=== PATIENT | male | born 1980 | race Caucasian/White ===

== ENCOUNTER 2017-09-24 18:20 | Emergency (ER) | payer SELFPAY ==
[2017-09-24 18:24] VITALS: BP 168/103; PULSE 85; RESP 14; TEMP 36.6; O2SAT 99; BMI 36.5
--- NOTE | 2017-09-24 19:22 | ED.NAVMDI ---
HPI - Nausea/Vomiting/Diarrhea <ADINA Dash - Last Filed: 09/25/17 00:31> General Chief complaint: Nausea/Vomiting/Diarrhea Stated complaint: N/V/D Time Seen by Provider: 09/24/17 19:21 Source: patient Mode of arrival: ambulatory Limitations: no limitations History of Present Illness HPI Narrative: Patient presents with nausea vomiting and diarrhea today. He states he woke up with it this morning. Had tuna fish for dinner last night and started feeling sick today. He wonders if the tuna fish is the cause. He denies any fevers but complains of some chills. He states he has had his gallbladder removed. He has had 6 episodes of diarrhea today. He does not know any blood in the stool but states his stool was black after he took Pepto-Bismol. His last vomit was approximately 1 hr before arrival to the emergency department. He denies any chest pain or shortness of breath. Related Data Home Medications Medication Instructions Recorded Confirmed No Known Home Medications 09/24/17 09/24/17 Allergies Allergy/AdvReac Type Severity Reaction Status Date / Time No Known Drug Allergies Allergy Verified 09/24/17 18:27 Review of Systems <ADINA Dash - Last Filed: 09/25/17 00:31> Review of Systems GENERAL: See HPI HEENT: Denies sinus pain, ear pain, sore throat, difficulty swallowing, dizziness. RESPIRATORY: Denies dyspnea, cough, wheezing, hemoptysis, sputum. CARDIOVASCULAR: Denies chest pain, palpitations, orthopnea, edema, GASTROINTESTINAL: See HPI : Denies dysuria, frequency, incontinence, hematuria, urinary retention. MUSCULOSKELETAL: denies weakness, joint pain, or bony pain SKIN: Denies rash, skin lesions, or other NEUROLOGIC: Denies weakness, headache, numbness, change in speech, confusion, seizures, incoordination. PSYCHIATRIC: No concerning psychosocial issues. 12 point review of systems is negative except for those stated above Exam <ADINA Dash - Last Filed: 09/25/17 00:31> Narrative Exam Narrative: GENERAL: This is a well-nourished, well-developed patient, lying on stretcher. HEAD: Atraumatic. Normocephalic. No temporal or scalp tenderness. EYES: Pupils equal round and reactive. Extraocular motions intact. No scleral icterus. No injection or drainage. ENT: Nose without bleeding, purulent drainage or septal hematoma. Throat without erythema, tonsillar hypertrophy or exudate. Uvula midline. Airway patent. NECK: Trachea midline. No JVD or lymphadenopathy. Supple, nontender, no meningeal signs. CARDIOVASCULAR: Regular rate and rhythm without murmurs, gallops, or rubs. RESPIRATORY: Clear to auscultation. Breath sounds equal bilaterally. No wheezes, rales, or rhonchi. GASTROINTESTINAL: Abdomen soft, generalized tenderness to palpation. No guarding noted. Active bowel sounds all 4 quadrants. No palpable hepatosplenomegaly. No pain at McBurney's point. EXTREMITIES: No clubbing, cyanosis, or edema. No joint tenderness, effusion, or edema noted. BACK: Nontender without deformity or crepitance. No flank tenderness. NEURO: AOx3. SKIN: No rash or erythema. Initial Vital Signs Initial Vital Signs: Vital Signs Temperature 97.9 F 09/24/17 18:24 Pulse Rate 85 09/24/17 18:24 Respiratory Rate 14 09/24/17 18:24 Blood Pressure 168/103 H 09/24/17 18:24 Pulse Oximetry 99 09/24/17 18:24 <Bina Titus DO - Last Filed: 09/25/17 05:05> Initial Vital Signs Initial Vital Signs: Vital Signs Temperature 97.9 F 09/24/17 18:24 Pulse Rate 85 09/24/17 18:24 Respiratory Rate 14 09/24/17 18:24 Blood Pressure 168/103 H 09/24/17 18:24 Pulse Oximetry 99 09/24/17 18:24 Course <JUN Dash-BC - Last Filed: 09/25/17 00:31> Additional Information: The patient presented with nausea vomiting diarrhea. He was given normal saline by IV and basic labs were drawn. He was given Zofran for nausea. An EKG was obtained. I checked on him several times throughout his stay. He was given Protonix as well as a GI cocktail, which she states provided some relief. The patient did not want to obtain a CT scan at this point in time as he felt his illness was due to eating tuna fish. He also did not have an acute abdomen, stable vital signs and no elevated white count. I discussed with him at length return precautions to come back to the emergency department for worsening pain, fever or any other acute concerns. I gave him a take-home pack of Zofran for nausea. He did pass a p.o. trial. Orders Ordered: ED Orders 09/24/17 20:11 EKG-12 Lead Stat Discontinued Medications Al Hydrox/Mg Hydrox/Simethicone 20 ml/ Lidocaine HCl 15 ml 0 ml PO NOW ONE Stop: 09/24/17 20:55 Last Admin: 09/24/17 21:00 Dose: 35 ml Sodium Chloride (Normal Saline 0.9%) 1,000 mls @ 1,000 mls/hr IV BOLUS ONE Stop: 09/24/17 20:29 Last Infusion: 09/24/17 20:42 Dose: 0 mls/hr Admin: 09/24/17 19:54 Dose: 1,000 mls/hr Sodium Chloride (Normal Saline 0.9%) 500 mls @ 1,000 mls/hr IV BOLUS ONE Stop: 09/24/17 20:40 Last Infusion: 09/24/17 21:20 Dose: 0 mls/hr Admin: 09/24/17 20:34 Dose: 1,000 mls/hr Ondansetron HCl (Zofran) 4 mg IV NOW ONE Stop: 09/24/17 19:31 Last Admin: 09/24/17 19:54 Dose: 4 mg Ondansetron HCl (Zofran) 4 mg IV NOW ONE Stop: 09/24/17 20:12 Last Admin: 09/24/17 20:34 Dose: Ondansetron HCl (Zofran Odt Prepack) 1 bottle MISC SEEINSTR ONE Stop: 09/24/17 22:29 Last Admin: 09/24/17 22:38 Dose: 1 bottle Pantoprazole Sodium (Protonix) 40 mg IV NOW ONE Stop: 09/24/17 20:34 Last Admin: 09/24/17 20:34 Dose: 40 mg Vital Signs - 8 hr 09/24/17 22:43 Temperature 98.4 F Pulse Rate 73 Respiratory Rate 16 Blood Pressure 160/91 H Pulse Oximetry 100 <Bina Titus DO - Last Filed: 09/25/17 05:05> Orders Ordered: ED Orders 09/24/17 20:11 EKG-12 Lead Stat Discontinued Medications Al Hydrox/Mg Hydrox/Simethicone 20 ml/ Lidocaine HCl 15 ml 0 ml PO NOW ONE Stop: 09/24/17 20:55 Last Admin: 09/24/17 21:00 Dose: 35 ml Sodium Chloride (Normal Saline 0.9%) 1,000 mls @ 1,000 mls/hr IV BOLUS ONE Stop: 09/24/17 20:29 Last Infusion: 09/24/17 20:42 Dose: 0 mls/hr Admin: 09/24/17 19:54 Dose: 1,000 mls/hr Sodium Chloride (Normal Saline 0.9%) 500 mls @ 1,000 mls/hr IV BOLUS ONE Stop: 09/24/17 20:40 Last Infusion: 09/24/17 21:20 Dose: 0 mls/hr Admin: 09/24/17 20:34 Dose: 1,000 mls/hr Ondansetron HCl (Zofran) 4 mg IV NOW ONE Stop: 09/24/17 19:31 Last Admin: 09/24/17 19:54 Dose: 4 mg Ondansetron HCl (Zofran) 4 mg IV NOW ONE Stop: 09/24/17 20:12 Last Admin: 09/24/17 20:34 Dose: Ondansetron HCl (Zofran Odt Prepack) 1 bottle MISC SEEINSTR ONE Stop: 09/24/17 22:29 Last Admin: 09/24/17 22:38 Dose: 1 bottle Pantoprazole Sodium (Protonix) 40 mg IV NOW ONE Stop: 09/24/17 20:34 Last Admin: 09/24/17 20:34 Dose: 40 mg Vital Signs - 8 hr 09/24/17 22:43 Temperature 98.4 F Pulse Rate 73 Respiratory Rate 16 Blood Pressure 160/91 H Pulse Oximetry 100 MDM - Nausea/Vomiting/Diarrhea <ADINA Dash - Last Filed: 09/25/17 00:31> Differential Diagnosis Likely traveler's diarrhea, food poisoning and gastroenteritis Lab Data Result diagrams: 09/24/17 19:26 09/24/17 19:26 Lab Results 09/24/17 09/24/17 09/24/17 Range/Units 19:26 19:26 19:55 WBC 8.8 (4.5-11.0) X10^3/uL RBC 4.71 (4.5-5.9) X10^6/uL Hgb 14.2 (13.5-17.5) g/dL Hct 42.5 (41-53) % MCV 90.2 (80-100) fL MCH 30.2 (26-34) PG MCHC 33.5 (30-36) % RDW 13.6 (11.6-14.8) % Plt Count 296 (150-400) X10^3/uL Neut % (Auto) 51.8 (50-75) % Lymph % (Auto) 38.3 (25-40) % Gaines % (Auto) 6.9 (3-14) % Eos % (Auto) 2.1 (2-4) % Baso % (Auto) 0.9 (0-2) % Neut # (Auto) 4500 (7692-3630) /uL Sodium 144 (137-145) mmol/L Potassium 3.6 (3.4-5.1) mmol/L Chloride 105 (98-107) mmol/L Carbon Dioxide 29 (22-32) mmol/L BUN 10 (9-20) mg/dL Creatinine 0.90 (0.66-1.25) mg/dL Estimated GFR > 60.0 (>60) mL/min BUN/Creatinine Ratio 11.1 (6-22) Glucose 98 (70-100) mg/dL Calcium 9.5 (8.4-10.2) mg/dL Total Bilirubin 0.7 (0.2-1.3) mg/dL AST 27 (17-59) IU/L ALT 28 (21-72) IU/L Alkaline Phosphatase 60 (38-126) U/L Total Protein 7.0 (6.3-8.2) g/dL Albumin 4.1 (3.5-5.0) g/dL Globulin 2.9 (1.7-4.1) g/dL Albumin/Globulin Ratio 1.4 (1.0-2.8) Lipase 77 (23-300) U/L Urine Color Yellow Urine Appearance Clear Urine pH 5.5 (4.5-8.0) Ur Specific [place] 1.025 (1.000-1.035) Urine Protein Negative (Negative) Urine Glucose (UA) Negative (Normal) g/dL Urine Ketones Trace H (NEGATIVE) Urine Occult Blood Trace-lysed (Negative) Urine Nitrate Negative (Negative) Urine Bilirubin Negative (NEGATIVE) Urine Urobilinogen 0.2 (0.2) E.U./dL Ur Leukocyte Esterase Negative (NEGATIVE) Urine RBC 1-5/hpf (0-5/HPF) Urine WBC None seen (0-5/HPF) Urine Bacteria None seen (None) MDM Narrative Medical decision making narrative: The patient presented with onset of nausea vomiting diarrhea after eating tuna fish. He did not have any guarding on abdominal exam. He has already had his gallbladder out. He remained hemodynamically stable throughout his stay. He did not have any fever. I discussed at length symptomatic care for his illness and gave him a take-home pack of Zofran. He did declined a CT at this point, I am okay with this as he does not have acute abdomen or fever. A urinalysis came back normal. He is stools guaiac negative. I discussed at length return precautions to the emergency department for any fever or worsening pain. The patient was able to pass a p.o. trial prior to leaving. <Bina Titus, DO - Last Filed: 09/25/17 05:05> Lab Data Lab Results 09/24/17 09/24/17 09/24/17 Range/Units 19:26 19:26 19:55 WBC 8.8 (4.5-11.0) X10^3/uL RBC 4.71 (4.5-5.9) X10^6/uL Hgb 14.2 (13.5-17.5) g/dL Hct 42.5 (41-53) % MCV 90.2 (80-100) fL MCH 30.2 (26-34) PG MCHC 33.5 (30-36) % RDW 13.6 (11.6-14.8) % Plt Count 296 (150-400) X10^3/uL Neut % (Auto) 51.8 (50-75) % Lymph % (Auto) 38.3 (25-40) % Gaines % (Auto) 6.9 (3-14) % Eos % (Auto) 2.1 (2-4) % Baso % (Auto) 0.9 (0-2) % Neut # (Auto) 4500 (5769-9138) /uL Sodium 144 (137-145) mmol/L Potassium 3.6 (3.4-5.1) mmol/L Chloride 105 (98-107) mmol/L Carbon Dioxide 29 (22-32) mmol/L BUN 10 (9-20) mg/dL Creatinine 0.90 (0.66-1.25) mg/dL Estimated GFR > 60.0 (>60) mL/min BUN/Creatinine Ratio 11.1 (6-22) Glucose 98 (70-100) mg/dL Calcium 9.5 (8.4-10.2) mg/dL Total Bilirubin 0.7 (0.2-1.3) mg/dL AST 27 (17-59) IU/L ALT 28 (21-72) IU/L Alkaline Phosphatase 60 (38-126) U/L Total Protein 7.0 (6.3-8.2) g/dL Albumin 4.1 (3.5-5.0) g/dL Globulin 2.9 (1.7-4.1) g/dL Albumin/Globulin Ratio 1.4 (1.0-2.8) Lipase 77 (23-300) U/L Urine Color Yellow Urine Appearance Clear Urine pH 5.5 (4.5-8.0) Ur Specific [place] 1.025 (1.000-1.035) Urine Protein Negative (Negative) Urine Glucose (UA) Negative (Normal) g/dL Urine Ketones Trace H (NEGATIVE) Urine Occult Blood Trace-lysed (Negative) Urine Nitrate Negative (Negative) Urine Bilirubin Negative (NEGATIVE) Urine Urobilinogen 0.2 (0.2) E.U./dL Ur Leukocyte Esterase Negative (NEGATIVE) Urine RBC 1-5/hpf (0-5/HPF) Urine WBC None seen (0-5/HPF) Urine Bacteria None seen (None) Discharge Plan Departure Patient Disposition: Home, Self-Care Clinical Impression: Nausea & vomiting, Diarrhea Discharge Date/Time: 09/24/17 22:44 Interventions: ED Discharge Assessment Last Done: 09/24/17 22:43 Instructions: DI for Diarrhea and Traveler's Diarrhea -- Adult, DI for Nausea -- Adult, DI for Vomiting -- Adult Activity Restrictions/Additional Instructions: Today we checked your blood work and you do not have any signs of infection. You do not have any signs of urinary tract infection. I suggest rest, pushing fluids, any easy to digest foods. I have given you a take home pack of Zofran for nausea. I suggest decreasing caffeine, alcohol, deep fried foods and other irritating agents. Come back to the emergency department if he develops any sudden changes and developed fever or localized abdominal pain. Given the sudden onset of nausea, vomiting and diarrhea after eating to not, I suspect her reacting to the food. Using take [id number] medications such as Imodium or pepto of a help you. I also suggest [id number] omeprazole if you are concerned about an ulcer. Prescriptions: No Action No Known Home Medications RF: 0 Stand Alone Forms: Work/School Restrictions <Bina Titus DO - Last Filed: 09/25/17 05:05> Cosign ED Attending Irasemaature Attestation: I was immediately available in the department for consultation. Documentation has been reviewed. I agree with assessment and plan.
--- NOTE | 2017-09-24 19:38 | ED_ITS ---
HPI - Nausea/Vomiting/Diarrhea <ADINA Dash - Last Filed: 09/25/17 00:31> General Chief complaint: Nausea/Vomiting/Diarrhea Stated complaint: N/V/D Time Seen by Provider: 09/24/17 19:21 Source: patient Mode of arrival: ambulatory Limitations: no limitations History of Present Illness HPI Narrative: Patient presents with nausea vomiting and diarrhea today. He states he woke up with it this morning. Had tuna fish for dinner last night and started feeling sick today. He wonders if the tuna fish is the cause. He denies any fevers but complains of some chills. He states he has had his gallbladder removed. He has had 6 episodes of diarrhea today. He does not know any blood in the stool but states his stool was black after he took Pepto- Bismol. His last vomit was approximately 1 hr before arrival to the emergency department. He denies any chest pain or shortness of breath. Related Data Home Medications Medication Instructions Recorded Confirmed No Known Home Medications 09/24/17 09/24/17 Allergies Allergy/AdvReac Type Severity Reaction Status Date / Time No Known Drug Allergies Allergy Verified 09/24/17 18:27 Review of Systems <ADINA Dash - Last Filed: 09/25/17 00:31> Review of Systems GENERAL: See HPI HEENT: Denies sinus pain, ear pain, sore throat, difficulty swallowing, dizziness. RESPIRATORY: Denies dyspnea, cough, wheezing, hemoptysis, sputum. CARDIOVASCULAR: Denies chest pain, palpitations, orthopnea, edema, GASTROINTESTINAL: See HPI : Denies dysuria, frequency, incontinence, hematuria, urinary retention. MUSCULOSKELETAL: denies weakness, joint pain, or bony pain SKIN: Denies rash, skin lesions, or other NEUROLOGIC: Denies weakness, headache, numbness, change in speech, confusion, seizures, incoordination. PSYCHIATRIC: No concerning psychosocial issues. 12 point review of systems is negative except for those stated above Exam <ADINA Dash - Last Filed: 09/25/17 00:31> Narrative Exam Narrative: GENERAL: This is a well-nourished, well-developed patient, lying on stretcher. HEAD: Atraumatic. Normocephalic. No temporal or scalp tenderness. EYES: Pupils equal round and reactive. Extraocular motions intact. No scleral icterus. No injection or drainage. ENT: Nose without bleeding, purulent drainage or septal hematoma. Throat without erythema, tonsillar hypertrophy or exudate. Uvula midline. Airway patent. NECK: Trachea midline. No JVD or lymphadenopathy. Supple, nontender, no meningeal signs. CARDIOVASCULAR: Regular rate and rhythm without murmurs, gallops, or rubs. RESPIRATORY: Clear to auscultation. Breath sounds equal bilaterally. No wheezes , rales, or rhonchi. GASTROINTESTINAL: Abdomen soft, generalized tenderness to palpation. No guarding noted. Active bowel sounds all 4 quadrants. No palpable hepatosplenomegaly. No pain at McBurney's point. EXTREMITIES: No clubbing, cyanosis, or edema. No joint tenderness, effusion, or edema noted. BACK: Nontender without deformity or crepitance. No flank tenderness. NEURO: AOx3. SKIN: No rash or erythema. Initial Vital Signs Initial Vital Signs: Vital Signs Temperature 97.9 F 09/24/17 18:24 Pulse Rate 85 09/24/17 18:24 Respiratory Rate 14 09/24/17 18:24 Blood Pressure 168/103 H 09/24/17 18:24 Pulse Oximetry 99 09/24/17 18:24 <Bina Titus DO - Last Filed: 09/25/17 05:05> Initial Vital Signs Initial Vital Signs: Vital Signs Temperature 97.9 F 09/24/17 18:24 Pulse Rate 85 09/24/17 18:24 Respiratory Rate 14 09/24/17 18:24 Blood Pressure 168/103 H 09/24/17 18:24 Pulse Oximetry 99 09/24/17 18:24 Course <JUN Dash-BC - Last Filed: 09/25/17 00:31> Additional Information: The patient presented with nausea vomiting diarrhea. He was given normal saline by IV and basic labs were drawn. He was given Zofran for nausea. An EKG was obtained. I checked on him several times throughout his stay. He was given Protonix as well as a GI cocktail, which she states provided some relief. The patient did not want to obtain a CT scan at this point in time as he felt his illness was due to eating tuna fish. He also did not have an acute abdomen, stable vital signs and no elevated white count. I discussed with him at length return precautions to come back to the emergency department for worsening pain, fever or any other acute concerns. I gave him a take-home pack of Zofran for nausea. He did pass a p.o. trial. Orders Ordered: ED Orders 09/24/17 20:11 EKG-12 Lead Stat Discontinued Medications Al Hydrox/Mg Hydrox/Simethicone 20 ml/ Lidocaine HCl 15 ml 0 ml PO NOW ONE Stop: 09/24/17 20:55 Last Admin: 09/24/17 21:00 Dose: 35 ml Sodium Chloride (Normal Saline 0.9%) 1,000 mls @ 1,000 mls/hr IV BOLUS ONE Stop: 09/24/17 20:29 Last Infusion: 09/24/17 20:42 Dose: 0 mls/hr Admin: 09/24/17 19:54 Dose: 1,000 mls/hr Sodium Chloride (Normal Saline 0.9%) 500 mls @ 1,000 mls/hr IV BOLUS ONE Stop: 09/24/17 20:40 Last Infusion: 09/24/17 21:20 Dose: 0 mls/hr Admin: 09/24/17 20:34 Dose: 1,000 mls/hr Ondansetron HCl (Zofran) 4 mg IV NOW ONE Stop: 09/24/17 19:31 Last Admin: 09/24/17 19:54 Dose: 4 mg Ondansetron HCl (Zofran) 4 mg IV NOW ONE Stop: 09/24/17 20:12 Last Admin: 09/24/17 20:34 Dose: Ondansetron HCl (Zofran Odt Prepack) 1 bottle MISC SEEINSTR ONE Stop: 09/24/17 22:29 Last Admin: 09/24/17 22:38 Dose: 1 bottle Pantoprazole Sodium (Protonix) 40 mg IV NOW ONE Stop: 09/24/17 20:34 Last Admin: 09/24/17 20:34 Dose: 40 mg Vital Signs - 8 hr 09/24/17 22:43 Temperature 98.4 F Pulse Rate 73 Respiratory Rate 16 Blood Pressure 160/91 H Pulse Oximetry 100 <Bina Titus DO - Last Filed: 09/25/17 05:05> Orders Ordered: ED Orders 09/24/17 20:11 EKG-12 Lead Stat Discontinued Medications Al Hydrox/Mg Hydrox/Simethicone 20 ml/ Lidocaine HCl 15 ml 0 ml PO NOW ONE Stop: 09/24/17 20:55 Last Admin: 09/24/17 21:00 Dose: 35 ml Sodium Chloride (Normal Saline 0.9%) 1,000 mls @ 1,000 mls/hr IV BOLUS ONE Stop: 09/24/17 20:29 Last Infusion: 09/24/17 20:42 Dose: 0 mls/hr Admin: 09/24/17 19:54 Dose: 1,000 mls/hr Sodium Chloride (Normal Saline 0.9%) 500 mls @ 1,000 mls/hr IV BOLUS ONE Stop: 09/24/17 20:40 Last Infusion: 09/24/17 21:20 Dose: 0 mls/hr Admin: 09/24/17 20:34 Dose: 1,000 mls/hr Ondansetron HCl (Zofran) 4 mg IV NOW ONE Stop: 09/24/17 19:31 Last Admin: 09/24/17 19:54 Dose: 4 mg Ondansetron HCl (Zofran) 4 mg IV NOW ONE Stop: 09/24/17 20:12 Last Admin: 09/24/17 20:34 Dose: Ondansetron HCl (Zofran Odt Prepack) 1 bottle MISC SEEINSTR ONE Stop: 09/24/17 22:29 Last Admin: 09/24/17 22:38 Dose: 1 bottle Pantoprazole Sodium (Protonix) 40 mg IV NOW ONE Stop: 09/24/17 20:34 Last Admin: 09/24/17 20:34 Dose: 40 mg Vital Signs - 8 hr 09/24/17 22:43 Temperature 98.4 F Pulse Rate 73 Respiratory Rate 16 Blood Pressure 160/91 H Pulse Oximetry 100 MDM - Nausea/Vomiting/Diarrhea <AIDNA Dash - Last Filed: 09/25/17 00:31> Differential Diagnosis Likely traveler's diarrhea, food poisoning and gastroenteritis Lab Data Result diagrams: 09/24/17 19:26 09/24/17 19:26 Lab Results 09/24/17 09/24/17 09/24/17 Range/Units 19:26 19:26 19:55 WBC 8.8 (4.5-11.0) X10^3/uL RBC 4.71 (4.5-5.9) X10^6/uL Hgb 14.2 (13.5-17.5) g/dL Hct 42.5 (41-53) % MCV 90.2 (80-100) fL MCH 30.2 (26-34) PG MCHC 33.5 (30-36) % RDW 13.6 (11.6-14.8) % Plt Count 296 (150-400) X10^3/uL Neut % (Auto) 51.8 (50-75) % Lymph % (Auto) 38.3 (25-40) % [place]hen[place] % (Auto) 6.9 (3-14) % Eos % (Auto) 2.1 (2-4) % Baso % (Auto) 0.9 (0-2) % Neut # (Auto) 4500 (4686-7012) /uL Sodium 144 (137-145) mmol/L Potassium 3.6 (3.4-5.1) mmol/L Chloride 105 (98-107) mmol/L Carbon Dioxide 29 (22-32) mmol/L BUN 10 (9-20) mg/dL Creatinine 0.90 (0.66-1.25) mg/dL Estimated GFR > 60.0 (>60) mL/min BUN/Creatinine Ratio 11.1 (6-22) Glucose 98 (70-100) mg/dL Calcium 9.5 (8.4-10.2) mg/dL Total Bilirubin 0.7 (0.2-1.3) mg/dL AST 27 (17-59) IU/L ALT 28 (21-72) IU/L Alkaline Phosphatase 60 (38-126) U/L Total Protein 7.0 (6.3-8.2) g/dL Albumin 4.1 (3.5-5.0) g/dL Globulin 2.9 (1.7-4.1) g/dL Albumin/Globulin Ratio 1.4 (1.0-2.8) Lipase 77 (23-300) U/L Urine Color Yellow Urine Appearance Clear Urine pH 5.5 (4.5-8.0) Ur Specific [place] 1.025 (1.000-1.035) Urine Protein Negative (Negative) Urine Glucose (UA) Negative (Normal) g/dL Urine Ketones Trace H (NEGATIVE) Urine Occult Blood Trace-lysed (Negative) Urine Nitrate Negative (Negative) Urine Bilirubin Negative (NEGATIVE) Urine Urobilinogen 0.2 (0.2) E.U./dL Ur Leukocyte Esterase Negative (NEGATIVE) Urine RBC 1-5/hpf (0-5/HPF) Urine WBC None seen (0-5/HPF) Urine Bacteria None seen (None) MDM Narrative Medical decision making narrative: The patient presented with onset of nausea vomiting diarrhea after eating tuna fish. He did not have any guarding on abdominal exam. He has already had his gallbladder out. He remained hemodynamically stable throughout his stay. He did not have any fever. I discussed at length symptomatic care for his illness and gave him a take-home pack of Zofran. He did declined a CT at this point, I am okay with this as he does not have acute abdomen or fever. A urinalysis came back normal. He is stools guaiac negative. I discussed at length return precautions to the emergency department for any fever or worsening pain. The patient was able to pass a p.o. trial prior to leaving. <Bina Titus, DO - Last Filed: 09/25/17 05:05> Lab Data Lab Results 09/24/17 09/24/17 09/24/17 Range/Units 19:26 19:26 19:55 WBC 8.8 (4.5-11.0) X10^3/uL RBC 4.71 (4.5-5.9) X10^6/uL Hgb 14.2 (13.5-17.5) g/dL Hct 42.5 (41-53) % MCV 90.2 (80-100) fL MCH 30.2 (26-34) PG MCHC 33.5 (30-36) % RDW 13.6 (11.6-14.8) % Plt Count 296 (150-400) X10^3/uL Neut % (Auto) 51.8 (50-75) % Lymph % (Auto) 38.3 (25-40) % Mchenry % (Auto) 6.9 (3-14) % Eos % (Auto) 2.1 (2-4) % Baso % (Auto) 0.9 (0-2) % Neut # (Auto) 4500 (6810-3468) /uL Sodium 144 (137-145) mmol/L Potassium 3.6 (3.4-5.1) mmol/L Chloride 105 (98-107) mmol/L Carbon Dioxide 29 (22-32) mmol/L BUN 10 (9-20) mg/dL Creatinine 0.90 (0.66-1.25) mg/dL Estimated GFR > 60.0 (>60) mL/min BUN/Creatinine Ratio 11.1 (6-22) Glucose 98 (70-100) mg/dL Calcium 9.5 (8.4-10.2) mg/dL Total Bilirubin 0.7 (0.2-1.3) mg/dL AST 27 (17-59) IU/L ALT 28 (21-72) IU/L Alkaline Phosphatase 60 (38-126) U/L Total Protein 7.0 (6.3-8.2) g/dL Albumin 4.1 (3.5-5.0) g/dL Globulin 2.9 (1.7-4.1) g/dL Albumin/Globulin Ratio 1.4 (1.0-2.8) Lipase 77 (23-300) U/L Urine Color Yellow Urine Appearance Clear Urine pH 5.5 (4.5-8.0) Ur Specific [place] 1.025 (1.000-1.035) Urine Protein Negative (Negative) Urine Glucose (UA) Negative (Normal) g/dL Urine Ketones Trace H (NEGATIVE) Urine Occult Blood Trace-lysed (Negative) Urine Nitrate Negative (Negative) Urine Bilirubin Negative (NEGATIVE) Urine Urobilinogen 0.2 (0.2) E.U./dL Ur Leukocyte Esterase Negative (NEGATIVE) Urine RBC 1-5/hpf (0-5/HPF) Urine WBC None seen (0-5/HPF) Urine Bacteria None seen (None) Discharge Plan Departure Patient Disposition: Home, Self-Care Clinical Impression: Nausea & vomiting, Diarrhea Discharge Date/Time: 09/24/17 22:44 Interventions: ED Discharge Assessment Last Done: 09/24/17 22:43 Instructions: DI for Diarrhea and Traveler's Diarrhea -- Adult, DI for Nausea - - Adult, DI for Vomiting -- Adult Activity Restrictions/Additional Instructions: Today we checked your blood work and you do not have any signs of infection. You do not have any signs of urinary tract infection. I suggest rest, pushing fluids, any easy to digest foods. I have given you a take home pack of Zofran for nausea. I suggest decreasing caffeine, alcohol, deep fried foods and other irritating agents. Come back to the emergency department if he develops any sudden changes and developed fever or localized abdominal pain. Given the sudden onset of nausea, vomiting and diarrhea after eating to not, I suspect her reacting to the food. Using take [id number] medications such as Imodium or pepto of a help you. I also suggest [id number] omeprazole if you are concerned about an ulcer. Prescriptions: No Action No Known Home Medications RF: 0 Stand Alone Forms: Work/School Restrictions <Bina Titus DO - Last Filed: 09/25/17 05:05> Cosign ED Attending Irasemaature Attestation: I was immediately available in the department for consultation. Documentation has been reviewed. I agree with assessment and plan.
[2017-09-24 19:42] LABS: Add Manual Diff / Slide Review NO; Basophils Percent Auto 0.9 % (0-2); Eosinophils Percent Auto 2.1 % (2-4); Hematocrit 42.5 % (41-53); Hemoglobin 14.2 g/dL (13.5-17.5); Lymphocytes Percent Auto 38.3 % (25-40); Mean Corpuscular HGB Conc 33.5 % (30-36); Mean Corpuscular Hemoglobin 30.2 PG (26-34); Mean Corpuscular Volume 90.2 fL (80-100); Monocytes Percent Auto 6.9 % (3-14); Neutrophils Absolute Auto 4500 /uL (3000-5900); Neutrophils Percent Auto 51.8 % (50-75); Platelet Count 296 X10^3/uL (150-400); Red Blood Cell Count 4.71 X10^6/uL (4.5-5.9); Red Cell Distribution Width 13.6 % (11.6-14.8); White Blood Cell Count 8.8 X10^3/uL (4.5-11.0)
[2017-09-24 19:52] VITALS: BP 155/88; PULSE 72; RESP 17; O2SAT 100
[2017-09-24] MEDS: SODIUM CHLORIDE 0.9% 1,000 ML 1000 ML IV (19:54)
[2017-09-24] MEDS: ONDANSETRON 4 MG/2 ML INJ IV (19:54)
[2017-09-24 19:56] LABS: Alanine Aminotransferase 28 IU/L (21-72); Albumin 4.1 g/dL (3.5-5.0); Albumin Globulin Ratio 1.4 (1.0-2.8); Alkaline Phosphatase 60 U/L (38-126); Aspartate Aminotransferase 27 IU/L (17-59); BUN Creatinine Ratio 11.1 (6-22); Bilirubin Total 0.7 mg/dL (0.2-1.3); Blood Urea Nitrogen 10 mg/dL (9-20); Calcium 9.5 mg/dL (8.4-10.2); Carbon Dioxide 29 mmol/L (22-32); Chloride 105 mmol/L (98-107); Estimated Glomerular Filt Rate > 60.0 mL/min (>60); Globulin 2.9 g/dL (1.7-4.1); Glucose 98 mg/dL (70-100); HEMOLYSIS < 15 (0-50); Lipase 77 U/L (23-300); Potassium 3.6 mmol/L (3.4-5.1); Sodium 144 mmol/L (137-145)
[2017-09-24 20:14] LABS: Bacteria Urine None Seen; WBC Urine None Seen (0-5/HPF)
[2017-09-24 20:34] LABS: Appearance Urine UA CLEAR; Bilirubin Urine UA NEGATIVE (NEGATIVE); Color Urine UA YELLOW; Glucose Urine UA NEGATIVE (Normal); Ketones Urine UA TRACE (NEGATIVE); Leukocyte Esterase Urine UA NEGATIVE (NEGATIVE); Nitrite Urine UA Negative (Negative); Occult Blood Urine UA TRACE-LYSED (Negative); Protein Urine UA NEGATIVE (Negative); Specific Gravity Urine UA 1.025 (1.000-1.035); Urobilinogen Urine UA 0.2 E.U./dL (0.2); pH Urine UA 5.5 (4.5-8.0)
[2017-09-24] MEDS: SODIUM CHLORIDE 0.9% 500 ML 1000 ML IV (20:34)
[2017-09-24] MEDS: PANTOPRAZOLE 40 MG VIAL IV (20:34)
[2017-09-24 20:40] LABS: RBC Urine 1-5/HPF (0-5/HPF)
[2017-09-24] MEDS: MAG HYDROX/ALUMINUM/SIMETH SUS 20 ML, LIDOCAINE VISCOUS 2% 15 ML PO (21:00)
[2017-09-24] MEDS: ONDANSETRON 4 MG ODT PREPACK 1 BOTTLE MISC (22:38)
[2017-09-24 22:43] VITALS: BP 160/91; PULSE 73; RESP 16; TEMP 36.9; O2SAT 100
== END 2017-09-24 22:44 | disposition home or self-care (01) ==
PROVIDERS: Emergency Provider Nurse Practitioner Family
DX: R11.2 Nausea with vomiting, unspecified (principal); R19.7 Diarrhea, unspecified
CPT/HCPCS: 36591; 80053; 81001; 82272; 83690; 85025; 93005; 96361; 96374; 96375; 96376; 99283; 99284; C9113; J2405